=== PATIENT | female | born 1970 | race American Indian/Alaskan Native ===

== ENCOUNTER 2021-01-08 10:45 | Emergency (ER) | payer OTHER ==
--- NOTE | 2021-01-08 11:09 | EDM.PDOC ---
ED HPI GENERAL MEDICAL PROBLEM - General Stated Complaint: GENERAL Time Seen by Provider: 01/08/21 11:00 Source of Information: Reports: Patient History Limitations: Reports: No Limitations - History of Present Illness INITIAL COMMENTS - FREE TEXT/NARRATIVE: 50-year-old female is to the emergency department via private vehicle with reports of 3 day history of and difficulty breathing. This has progressively gotten worse with time and she has also developed right lateral chest and flank pain as well as right upper quadrant abdominal pain. Also very short of breath today and did have an O2 saturation in the low to mid 80s. She has had no nausea, vomiting or diarrhea. Cough has been productive of clear white phlegm. The pain in her chest is moderate to severe. It is sharp and stabbing. It does not radiate. It is somewhat worse when she takes a deep breath or coughs. She is really a very poor historian and although she is oriented and able to converse, she appears somewhat ill and it is hard to understand her talking. She hasn't really ate or drank much over the past 2 days. She does feel rather thirsty now. The patient has not been vaccinated against Covid and she is unaware of any exposure to Covid. There are no other associated signs or symptoms. There are no other modifying factors. Onset: Other (3 days ago) Duration: Getting Worse Location: Reports: Chest, Abdomen (Right lateral chest right flank and right upper quadrant abdominal pain) Quality: Reports: Sharp, Stabbing Severity: Moderate (to severe.) Improves with: Reports: None Worsens with: Reports: Breathing, Other (Cough. 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) (Nothing.) Right Chest Pain Score (Numeric/FACES): 20 - Related Data Allergies Allergy/AdvReac Type Severity Reaction Status Date / Time No Known Allergies Allergy Verified 01/08/21 11:08 Home Meds: Home Meds NK [No Known Home Meds] 01/08/21 [History] Past Medical History Cardiovascular History: Reports: Hypertension Endocrine/Metabolic History: Reports: Diabetes, Type II - Past Surgical History GI Surgical History: Reports: Cholecystectomy Musculoskeletal Surgical History: 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 Denies: Nausea, Vomiting : Denies: Dysuria, Hematuria Musculoskeletal: Denies: Neck Pain, Back Pain Skin: Denies: Rash, Wound Neurological: Reports: Headache, Weakness Psychiatric: Reports: Anxiety Hematologic/Lymphatic: Denies: Easy Bleeding, Easy Bruising ED EXAM, GENERAL - Physical Exam Exam: See Below Exam Limited By: No Limitations General Appearance: Alert, Moderate Distress, Obese Eye Exam: Bilateral Eye: EOMI, Normal Inspection (Sclera are anicteric), PERRL Ears: Normal External Exam, Hearing Grossly Normal Ear Exam: Bilateral Ear: Auricle Normal Nose: Normal Inspection, No Blood. No: Clear Rhinorrhea Throat/Mouth: No Airway Compromise, Other (Dry mucous membranes) Head: Atraumatic, Normocephalic. No: Facial Swelling, Facial Tenderness Neck: Normal Inspection, Supple, Non-Tender, Full Range of Motion Respiratory/Chest: Respiratory Distress (Increased respiratory rate), Decreased Breath Sounds, Rhonchi, Wheezing Cardiovascular: Normal Peripheral Pulses, Regular Rate, Rhythm, No Edema, No Gallop, No Murmur Peripheral Pulses: 2+: Radial (L), Radial (R), Dorsalis Pedis (L), Dorsalis Pedis (R) GI/Abdominal: Normal Bowel Sounds, Soft, No Organomegaly, Tender (Right flank and right upper quadrant) Back Exam: Normal Inspection, Full Range of Motion. No: CVA Tenderness (R), CVA Tenderness (L) Extremities: Normal Inspection, Normal Range of Motion, Non-Tender, No Pedal Edema, Normal Capillary Refill Neurological: Alert, Oriented, CN II-XII Intact, No Motor/Sensory Deficits Psychiatric: Anxious Skin Exam: Warm, Dry, Intact, Normal Color, No Rash #1 Interpretation EKG Date: 01/08/21 Time: 12:18 Rhythm: NSR Rate (Beats/Min): 89 [place]: LAD-Left [place] Deviation P-Wave: Present QRS: Normal ST-T: Normal QT: Prolonged (Prolonged QTc.) Comparison: NA - No Prior EKG Course - Vital Signs Last Recorded V/S: Last Vital Signs Temp 36.5 C 01/08/21 10:47 Pulse 88 01/08/21 10:47 Resp 24 H 01/08/21 10:47 BP 88/57 L 01/08/21 10:47 Pulse Ox 89 L 01/08/21 10:47 - Orders/Labs/Meds Orders: Active Orders 24 hr Category Date Time Status CULTURE BLOOD [BC] Urgent Lab 01/08/21 12:00 Ordered CULTURE BLOOD [BC] Urgent Lab 01/08/21 12:00 Ordered UA W/MICROSCOPIC [URIN] Stat Lab 01/08/21 12:07 Ordered Blood Culture x2 Reflex Set [OM.PC] Urgent Oth 01/08/21 11:56 Ordered Peripheral IV Insertion Adult [OM.PC] Routine Oth 01/08/21 11:22 Ordered EKG 12 Lead [EK] Routine Ther 01/08/21 11:22 Ordered Labs: Laboratory Tests 01/08/21 01/08/21 01/08/21 Range/Units 11:50 11:50 11:50 WBC 5.0 (3.0-10.3) x10-3/uL RBC 3.93 (3.60-5.20) x10(6)uL Hgb 12.0 (11.4-15.5) g/dL Hct 35.9 (34.2-48.2) % MCV 91.4 (76.7-100.5) fL MCH 30.6 (23.9-33.9) pg MCHC 33.5 (31.9-34.8) g/dL RDW 15.5 (12.3-16.5) % Plt Count 56 L (151-488) x10(3)uL MPV 9.8 (7.1-12.4) fL Neut % (Auto) 88.4 H (30.8-76.2) % Lymph % (Auto) 8.3 L (18.4-52.1) % [place] % (Auto) 2.7 L (4.4-15.7) % Eos % (Auto) 0.1 L (0.6-8.1) % Baso % (Auto) 0.5 (0.2-1.5) % Neut # (Auto) 4.4 (1.5-6.3) x10-3/uL Lymph # (Auto) 0.4 L (1.0-4.4) x10-3/uL [place] # (Auto) 0.1 L (0.3-1.0) x10-3/uL Eos # (Auto) 0.0 (0.0-0.8) x10-3/uL Baso # (Auto) 0.0 (0.0-0.1) x10-3/uL D-Dimer, Quantitative 5.45 H (0.0-0.59) mg/LFEU POC VBG pH (7.32-7.43) pH Units POC VBG pCO2 (41-51) mmHg POC VBG HCO3 (22-29) mmol/L VBG Base Excess (-2 - 3+) mmol/L O2 Delivery Device Oxygen Flow Rate LPM Sodium (135-145) mmol/L Potassium (3.5-5.3) mmol/L Chloride (100-110) mmol/L Carbon Dioxide (21-32) mmol/L BUN (7-18) mg/dL Creatinine (0.55-1.02) mg/dL Est Cr Clr Drug Dosing mL/min Estimated GFR (MDRD) (>60) BUN/Creatinine Ratio (9-20) Glucose (80-116) mg/dL Lactic Acid (0.4-2.0) mmol/L Calcium (8.6-10.2) mg/dL Magnesium (1.8-2.5) mg/dL Total Bilirubin (0.1-1.3) mg/dL AST (5-25) IU/L ALT (12-36) U/L Alkaline Phosphatase (56-112) IU/L Troponin I (4.0-60.3) pg/mL C-Reactive Protein (0.5-0.9) mg/dL Total Protein (6.0-8.0) g/dL Albumin (3.5-5.2) g/dL Globulin g/dL Albumin/Globulin Ratio Lipase (73-393) U/L SARS-CoV-2 RNA (POLLO) Positive H (NEGATIVE) 01/08/21 01/08/21 01/08/21 Range/Units 11:50 11:50 11:50 WBC (3.0-10.3) x10-3/uL RBC (3.60-5.20) x10(6)uL Hgb (11.4-15.5) g/dL Hct (34.2-48.2) % MCV (76.7-100.5) fL MCH (23.9-33.9) pg MCHC (31.9-34.8) g/dL RDW (12.3-16.5) % Plt Count (151-488) x10(3)uL MPV (7.1-12.4) fL Neut % (Auto) (30.8-76.2) % Lymph % (Auto) (18.4-52.1) % [place] % (Auto) (4.4-15.7) % Eos % (Auto) (0.6-8.1) % Baso % (Auto) (0.2-1.5) % Neut # (Auto) (1.5-6.3) x10-3/uL Lymph # (Auto) (1.0-4.4) x10-3/uL [place] # (Auto) (0.3-1.0) x10-3/uL Eos # (Auto) (0.0-0.8) x10-3/uL Baso # (Auto) (0.0-0.1) x10-3/uL D-Dimer, Quantitative (0.0-0.59) mg/LFEU POC VBG pH (7.32-7.43) pH Units POC VBG pCO2 (41-51) mmHg POC VBG HCO3 (22-29) mmol/L VBG Base Excess (-2 - 3+) mmol/L O2 Delivery Device Oxygen Flow Rate LPM Sodium 137 (135-145) mmol/L Potassium 4.1 (3.5-5.3) mmol/L Chloride 105 (100-110) mmol/L Carbon Dioxide 19 L (21-32) mmol/L BUN 63 H (7-18) mg/dL Creatinine 3.4 H* (0.55-1.02) mg/dL Est Cr Clr Drug Dosing 18.12 mL/min Estimated GFR (MDRD) 14 L (>60) BUN/Creatinine Ratio 18.5 (9-20) Glucose 85 (80-116) mg/dL Lactic Acid (0.4-2.0) mmol/L Calcium 6.7 L (8.6-10.2) mg/dL Magnesium 2.0 (1.8-2.5) mg/dL Total Bilirubin 2.4 H (0.1-1.3) mg/dL AST 113 H (5-25) IU/L ALT 43 H (12-36) U/L Alkaline Phosphatase 240 H (56-112) IU/L Troponin I 19.5 (4.0-60.3) pg/mL C-Reactive Protein 4.6 H* (0.5-0.9) mg/dL Total Protein 6.2 (6.0-8.0) g/dL Albumin 1.4 L* (3.5-5.2) g/dL Globulin 4.8 g/dL Albumin/Globulin Ratio 0.3 Lipase 404 H (73-393) U/L SARS-CoV-2 RNA (POLLO) (NEGATIVE) 01/08/21 01/08/21 Range/Units 11:50 12:33 WBC (3.0-10.3) x10-3/uL RBC (3.60-5.20) x10(6)uL Hgb (11.4-15.5) g/dL Hct (34.2-48.2) % MCV (76.7-100.5) fL MCH (23.9-33.9) pg MCHC (31.9-34.8) g/dL RDW (12.3-16.5) % Plt Count (151-488) x10(3)uL MPV (7.1-12.4) fL Neut % (Auto) (30.8-76.2) % Lymph % (Auto) (18.4-52.1) % [place] % (Auto) (4.4-15.7) % Eos % (Auto) (0.6-8.1) % Baso % (Auto) (0.2-1.5) % Neut # (Auto) (1.5-6.3) x10-3/uL Lymph # (Auto) (1.0-4.4) x10-3/uL [place] # (Auto) (0.3-1.0) x10-3/uL Eos # (Auto) (0.0-0.8) x10-3/uL Baso # (Auto) (0.0-0.1) x10-3/uL D-Dimer, Quantitative (0.0-0.59) mg/LFEU POC VBG pH 7.37 (7.32-7.43) pH Units POC VBG pCO2 32 L (41-51) mmHg POC VBG HCO3 18 L (22-29) mmol/L VBG Base Excess -6 L (-2 - 3+) mmol/L O2 Delivery Device Simple mask Oxygen Flow Rate 15 LPM Sodium (135-145) mmol/L Potassium (3.5-5.3) mmol/L Chloride (100-110) mmol/L Carbon Dioxide (21-32) mmol/L BUN (7-18) mg/dL Creatinine (0.55-1.02) mg/dL Est Cr Clr Drug Dosing mL/min Estimated GFR (MDRD) (>60) BUN/Creatinine Ratio (9-20) Glucose (80-116) mg/dL Lactic Acid 4.4 H* (0.4-2.0) mmol/L Calcium (8.6-10.2) mg/dL Magnesium (1.8-2.5) mg/dL Total Bilirubin (0.1-1.3) mg/dL AST (5-25) IU/L ALT (12-36) U/L Alkaline Phosphatase (56-112) IU/L Troponin I (4.0-60.3) pg/mL C-Reactive Protein (0.5-0.9) mg/dL Total Protein (6.0-8.0) g/dL Albumin (3.5-5.2) g/dL Globulin g/dL Albumin/Globulin Ratio Lipase (73-393) U/L SARS-CoV-2 RNA (POLLO) (NEGATIVE) Meds: Medications Discontinued Medications Generic Name Dose Route Start Last Admin Trade Name Freq PRN Reason Stop Dose Admin Dexamethasone 4 mg 01/08/21 12:59 Dexamethasone 4 Mg/Ml Sdv IVPUSH 01/08/21 13:00 ONETIME ONE Dexamethasone 6 mg 01/08/21 13:37 01/08/21 13:54 Dexamethasone 4 Mg/Ml Sdv IVPUSH 01/08/21 13:38 6 mg ONETIME ONE Administration Sodium Chloride 500 mls @ 999 mls/hr 01/08/21 11:25 01/08/21 11:38 Normal Saline IV 01/08/21 11:55 999 mls/hr .BOLUS ONE Administration Sodium Chloride 1,000 mls @ 125 mls/hr 01/08/21 11:30 Normal Saline IV ASDIRECTED BERNA Sodium Chloride 1,000 mls @ 999 mls/hr 01/08/21 12:58 01/08/21 13:30 Normal Saline IV 01/08/21 13:58 999 mls/hr .BOLUS ONE Administration Sodium Chloride 10 ml 01/08/21 11:22 01/08/21 11:05 Sodium Chloride 0.9% 10 Ml Syringe FLUSH 10 ml ASDIRECTED PRN Administration Keep Vein Open - Radiology Interpretation Free Text/Narrative:: Portable chest x-ray shows bilateral scattered infiltrates with left being greater than right in a pattern consistent with Covid pneumonia - Re-Assessments/Exams Free Text/Narrative Re-Assessment/Exam: 01/08/21 12:40: Patient blood pressure in the 90-100 systolic range. She is still taking her mascot frequently and will not stay in the bed. Her heart rate remains in the 80s. Her O2 saturations are mid 90s as long as she keeps the oxygen on She is awake and alert and responds normally but she is just not being very cooperative. Her respiratory rate remains in the mid 20s. She does have evidence of an acute kidney injury and her lactic acid is elevated. She has received 500 mL bolus of normal saline and I am ordering another liter bolus now. I am awaiting the remainder of her labs coming back but I am quite concerned that she has Covid pneumonia. I have been informed that any inpatient beds available at [facility]. There are no Covid beds at this hospital in any event. The patient will need transfer to a facility. 01/08/21 13:00: The patient's Covid test was positive. A portable chest x-ray did show bilateral infiltrates in a pattern consistent with Covid. White blood cell count was 5.0. Hemoglobin is 12.0. Platelet count is 56K. the sodium is 137. The potassium is normal. Bicarbonate is 19. BUN is 63 and creatinine is 3.4. The glucose is 85. AST is 113 and ALT is 43. Total bilirubin is 2.4. Lipase is 404. Lactic acid was 4.4. Venous blood gas showed a pH of 7.37 and a PCO2 of 32. D-dimer is 5.45 which is markedly elevated. 4.6. The patient is currently receiving another liter bolus of normal saline. I will order Decadron 6 mg IV. I discussed all of this with the patient and she she'll need transfer to another facility for admission for further cares and she would want me to discuss her case with the doctors at [facility] in [place]. 01/08/21 13:15: I discussed the patient's case with Dr. Conner, hospitalist at [facility] in [place], and he will accept the patient in transfer. The patient will need to be transferred via [facility] ambulance service. Discussed this with the patient and she is in agreement with this plan. We will continue to closely monitor the patient and continue IV fluid resuscitation with normal saline Departure - Departure Time of Disposition: 14:30 Disposition: DC/Tfer to [facility] 02 Condition: Fair (Guarded) Clinical Impression: Pneumonia due to COVID-19 virus, Acute kidney injury, Hepatitis Respiratory failure with hypoxia Qualifiers: Chronicity: acute Qualified Code(s): J96.01 - Acute respiratory failure with hypoxia Hypotension Qualifiers: Hypotension type: unspecified hypotension type Qualified Code(s): I95.9 - Hypotension, unspecified - Discharge Information Referrals: PCP,Not In Area [Primary Care Provider] - Forms: ED Department Discharge Sepsis Event Note (ED) - Focused Exam Vital Signs: Vital Signs Temp Pulse Resp BP Pulse Ox 01/08/21 10:47 36.5 C 88 24 H 88/57 L 89 L - My Orders Last 24 Hours: My Active Orders 01/08/21 11:22 Peripheral IV Insertion Adult [OM.PC] Routine EKG 12 Lead [EK] Routine 01/08/21 11:56 Blood Culture x2 Reflex Set [OM.PC] Urgent 01/08/21 12:00 CULTURE BLOOD [BC] Urgent CULTURE BLOOD [BC] Urgent 01/08/21 12:07 UA W/MICROSCOPIC [URIN] Stat - Assessment/Plan Last 24 Hours: My Active Orders 01/08/21 11:22 Peripheral IV Insertion Adult [OM.PC] Routine EKG 12 Lead [EK] Routine 01/08/21 11:56 Blood Culture x2 Reflex Set [OM.PC] Urgent 01/08/21 12:00 CULTURE BLOOD [BC] Urgent CULTURE BLOOD [BC] Urgent 01/08/21 12:07 UA W/MICROSCOPIC [URIN] Stat
[2021-01-08] MEDS ORDERED: Sodium Chloride 0.9% 10 ML Syringe FLUSH PRN (11:22)
[2021-01-08] MEDS ORDERED: Sodium Chloride 0.9% 500 ML IV ONE (11:25)
[2021-01-08] MEDS ORDERED: Sodium Chloride 0.9% 1,000 ML IV SCH (11:30)
[2021-01-08 12:41] LABS: BASE EXCESS VENOUS,POC -6 mmol/L (-2 - 3+); PCO2 VENOUS,POC 32 mmHg (41-51); PH VENOUS,POC 7.37 pH Units (7.32-7.43)
[2021-01-08] MEDS ORDERED: Sodium Chloride 0.9% 1,000 ML IV ONE (12:58)
[2021-01-08] MEDS ORDERED: Dexamethasone 4 MG/ML SDV IVPUSH ONE ×2 (12:59→13:37)
--- NOTE | 2021-01-08 15:21 | CR ---
INDICATION: Dyspnea. CHEST ONE VIEW: AP upright portable view of the chest was obtained. No comparisons were available. Patchy infiltration - consolidating patchy pneumonia - is suggested in the left mid lung field and lower lung field. There may be some relatively minimal patchy infiltration in the lower lung field on the right. The heart did not appear grossly enlarged. No definite evidence of CHF is seen. Evidence of exogenous obesity is noted. IMPRESSION: 1. Fairly severe infiltration is noted in the left mid to lower lung field and lung bases. The findings are felt to be most compatible with pneumonia. A process such as COVID pneumonia would a consideration although only minimal possible infiltrate is suggested on the right. 2. Exogenous obesity. MTDD
== END 2021-01-08 14:30 ==
LOC: FB.ED 10:45
DX: U07.1 COVID-19 (principal); J12.82 Pneumonia due to coronavirus disease 2019; K75.9 Inflammatory liver disease, unspecified; J96.01 Acute respiratory failure with hypoxia; N17.9 Acute kidney failure, unspecified; I95.9 Hypotension, unspecified; I10 Essential (primary) hypertension; E11.9 Type 2 diabetes mellitus without complications; Z72.0 Tobacco use
CPT/HCPCS: 36415; 71045; 80053; 83605; 83690; 83735; 84484; 85025; 85379; 86140; 87040; 87635; 93005; 96374; 99285; J1100; J7030; J7040; U0002